=== PATIENT | male | born 1965 | race Caucasian/White ===

== ENCOUNTER → 2016-03-09 | Outpatient (CLI) | payer OTHER ==
[~2016-03-09] MED LIST: ACET-749 PO; ACYC-223 PO; AMLO-114 PO; ASPEC325 PO; CARB200T PO; CLOP1TAB15 PO; CLR10 PO; DIPH25CA65 PO; DOXY100C76 PO; FIBER PO; FRS/40 PO; IBUP-1450 PO; INSDGI SC; INSHRIE SC; INSUINJ17 SC; LSN40 PO; MELO15TA4 PO; MRLP17 PO; MULTTAB58 PO; NTRGSL/4 UT; PRED20TA PO; ROSU40TA PO; VANC500I IV; [UNRECOGNIZED DRUG - CODE] PO; [UNRECOGNIZED DRUG - OTHER] TD
== END ==
LOC: EDBD → C.LABSPEC 07:45
DX: Z79.899 Other long term (current) drug therapy (principal); Z51.81 Encounter for therapeutic drug level monitoring

== ENCOUNTER → 2016-08-17 | Outpatient (CLI) | payer OTHER ==
[~2016-08-17] MED LIST changes: +ATROPINE SULFATE 0.1 MG/ML 5ML SYR ONE; +DOBUTamine HCL 12.5 MG/ML 20 ML VIAL ONE; +METOPROLOL TARTRATE 1 MG/ML VIAL ONE; +PERFLUTREN LIPID MICROSPHERE (DEFINITY) IV ONE; -VANC500I IV
--- NOTE | 2016-08-17 15:11 | DOBUTAMINE ECHO ---
*NOTICE TO RECEIVING LIBERTARIAN AGENCY This information is strictly Confidential and protected under [place] law. [place] law prohibits you from making any further disclosure of this information unless further disclosure is expressly permitted by the written consent of the person to whom it pertains or is authorized by law. A general authorization for the release of medical or other information is not sufficient for this purpose. Hospital accepts no responsibility if the information is made available to any other person, INCLUDING THE PATIENT. Interpretation Summary * Name: MARYBETH MEDRANO [id number] Study Date: 08/17/2016 11:35 AM BP: 127/76 mmHg * Patient Location: [facility] HR: 68 * : 06/10/1961 (M/d/yyyy) Gender: Male Height: 76 in * Age: 55 yrs Ethnicity: [place] Weight: 262 lb * Ordering Physician: Sammy Monsivais * Referring Physician: Sammy Monsivais * Performed By: Argelia Christianson RDCS * * Reason For Study: Abnormal EKG * BSA: 2.5 m2 * -- Conclusions -- * Stress Echo: * 1. Negative Dobutamine stress echo for ischemia at 84% MPHR. Cannot rule out ischemic changes at faster heart rates. * 2. Nondiagnostic Dobutamine ECG as target heart rate was not attained. * 3. Mild chest discomfort reported at peak stress. * 4. Appropriate blood pressure response. * 5. No arrhythmia. * 6. Technically difficult study, enhanced with IV Definity. * ECHO: * 1. Normal left ventricular size and systolic function. EF 55%. No regional wall motion abnormalities. Mild concentric left ventricular hypertrophy. Type 1 diastolic dysfunction. * 2. No significant valvular abnormalities. Procedure Details * DOBUTAMINE ECHO, CPT#[id number] * ECHO DOPPLER, CPT #[id number] * ECHO COLOR FLOW, CPT #[id number] * A contrast injection of Definity was performed to improve assessment of LV function. * Contrast was injected into an intravenous site in the right arm. * One vial of Definity ultrasound contrast was diluted in normal saline to a total volume of 10 ml. A total of '8' ml of solution was administered during imaging. * Lot # [id number] of Definity utilized for procedure. * Expiration date AUG 21. * The attending nurse who injected the contrast agent was Domonique Warren RN. Left Ventricle * The left ventricle is normal in size. * There is mild concentric left ventricular hypertrophy. * Left ventricular systolic function is normal. * Resting wall motion: Normal. Stress wall motion: Appropriate increase in Left ventricular systolic function and decrease in cavity size. No stress induced segmental wall motion abnormalities. * The left ventricular ejection fraction increases normally with stress. The left ventricular end-systolic cavity size reduces post-stress (normal response). The left ventricular wall motion with stress is normal. Right Ventricle * The right ventricle is normal in size and function. * The right ventricular systolic function is normal as assessed by tricuspid annular plane systolic excursion (TAPSE) (normal >1.5 cm). Atria * The left atrial size is normal. * Right atrial size is normal. * There is no evidence of atrial septal defect, but resolution does not allow assessment for a patent foramen ovale. Mitral Valve * There is mild mitral annular calcification. * There is no mitral valve stenosis. * There is trace mitral regurgitation. Tricuspid Valve * The tricuspid valve is not well visualized, but is grossly normal. * There is no tricuspid stenosis. * Significant tricuspid regurgitation is absent. Aortic Valve * The aortic valve is trileaflet. * The aortic valve is normal in structure and function. * No hemodynamically significant valvular aortic stenosis. * No aortic regurgitation is present. Pulmonic Valve * The pulmonary valve is inadequately visualized, but the Doppler data is adequate for interpretation. * Trace pulmonic valvular regurgitation. Great Vessels * The aortic root is normal size. * Ascending aorta of normal dimension Pericardium * There is no pericardial effusion. Stress Parameters * NSR at 67 bpm. Inferolateral T wave abnormality. * Pseudonormalization of baseline T wave abnormalities. No significant ST changes from baseline. * The stress portion of this study was personally supervised by the undersigned interpreting physician. * Rest heart rate was '67' BPM. * Rest blood pressure was '127/76' * Maximum heart rate achieved was 137 bpm. * Maximum heart rate was 84 % of maximum age-predicted heart rate. * Maximum blood pressure was '165/86' * Maximum Dobutamine infusion rate was '50' mcg/kg/min. * A total of 1.25 mg of intravenous Atropine was used to supplement Dobutamine for heart rate response. * Dobutamine infusion was terminated due to achieving target heart rate * A total of 10 mg of IV Metoprolol was administered to reverse Dobutamine-induced tachycardia. * The patient did not exhibit any symptoms during drug infusion. Left Ventricular Diastolic Function * Grade I diastolic dysfunction, (abnormal relaxation pattern). MMode 2D Measurements and Calculations IVSd 1.2 cm LVIDd 5.1 cm LVIDs 3.6 cm LVPWd 1.3 cm IVS/LVPW 0.96 FS 29.9 % EDV(Teich) 121.9 ml ESV(Teich) 52.7 ml EF(Teich) 56.7 % EDV(cubed) 130.0 ml ESV(cubed) 44.8 ml EF(cubed) 65.5 % LV mass(C)d 254.2 grams LV mass(C)dI 102.3 grams/m\S\2 SV(Teich) 69.2 ml SI(Teich) 27.8 ml/m\S\2 SV(cubed) 85.1 ml SI(cubed) 34.3 ml/m\S\2 Ao root diam 3.3 cm Ao root area 8.7 cm\S\2 ACS 2.1 cm LA dimension 3.7 cm asc Aorta Diam 3.1 cm LA/Ao 1.1 LVOT diam 2.5 cm LVOT area 5.0 cm\S\2 LVAd ap4 42.7 cm\S\2 LVLd ap4 9.5 cm EDV(MOD-sp4) 157.5 ml EDV(sp4-el) 163.9 ml LVAs ap4 25.6 cm\S\2 LVLs ap4 7.7 cm ESV(MOD-sp4) 68.6 ml ESV(sp4-el) 71.7 ml EF(MOD-sp4) 56.4 % EF(sp4-el) 56.2 % LVAd ap2 42.2 cm\S\2 LVLd ap2 9.7 cm EDV(MOD-sp2) 147.4 ml EDV(sp2-el) 154.9 ml LVAs ap2 25.4 cm\S\2 LVLs ap2 7.6 cm ESV(MOD-sp2) 69.3 ml ESV(sp2-el) 72.4 ml EF(MOD-sp2) 53.0 % EF(sp2-el) 53.3 % LVLd %diff 2.9 % EDV(MOD-bp) 154.9 ml LVLs %diff -1.94 % ESV(MOD-bp) 69.6 ml EF(MOD-bp) 55.1 % SV(MOD-sp4) 88.9 ml SI(MOD-sp4) 35.8 ml/m\S\2 SV(MOD-sp2) 78.1 ml SI(MOD-sp2) 31.4 ml/m\S\2 SV(MOD-bp) 85.3 ml SI(MOD-bp) 34.3 ml/m\S\2 SV(sp4-el) 92.2 ml SI(sp4-el) 37.1 ml/m\S\2 SV(sp2-el) 82.6 ml SI(sp2-el) 33.2 ml/m\S\2 Doppler Measurements and Calculations MV E max dave 64.0 cm/sec MV A max dave 95.6 cm/sec MV E/A 0.67 MV dec time 0.28 sec Ao V2 max 148.3 cm/sec Ao max PG 8.8 mmHg Ao max PG (full) 5.8 mmHg CATRACHITO(V,A) 2.9 cm\S\2 CATRACHITO(V,D) 2.9 cm\S\2 LV V1 max PG 3.0 mmHg LV V1 max 86.5 cm/sec PA V2 max 105.9 cm/sec PA max PG 4.5 mmHg PA acc slope 500.5 cm/sec\S\2 PA acc time 0.11 sec PA pr(Accel) 31.5 mmHg
== END | disposition home or self-care (01) ==
LOC: C.CPL 10:57
PROVIDERS: ATTEND Family Medicine
DX: R94.31 Abnormal electrocardiogram [ECG] [EKG] (principal); I25.10 Atherosclerotic heart disease of native coronary artery without angina pectoris; E78.5 Hyperlipidemia, unspecified; E11.9 Type 2 diabetes mellitus without complications